=== PATIENT | female | born 1945 | race Caucasian/White ===

== ENCOUNTER 2017-10-14 11:09 | Emergency (ER) | payer MEDICARE, SELFPAY ==
[2017-10-14 11:10] VITALS: BP 187/98; PULSE 79; RESP 22; TEMP 36.7; O2SAT 96; BMI 44.8
[2017-10-14 11:32] VITALS: PULSE 79; RESP 18; O2SAT 95
--- NOTE | 2017-10-14 11:55 | ED.DCSUM_ITS ---
- ER Visit Summary Date of Service: 10/14/17 Chief Complaint: Left leg laceration History of Present Illness: The patient is a 71 M who is in a wheelchair and she caught her left leg on the door of a car. states her tetanus was performed 5 years ago. She has severe lymphedema. Physical Examination: Afebrile vital signs are stable There is a 3 cm fairly well approximated laceration of the anterior aspect of the mid left leg. There is 4+ lymphedema. There is mild oozing at the laceration site. Laceration is full-thickness. Emergency Department Course and Treatment: Has the skin is then and the wound is weeping already with lymphedematous fluid. I used Dermabond to close the wound after washing with Shur-Clens. Patient was placed on Keflex. She will follow-up with her doctor in 1 week return if worsening. Impression: 1. 3 cm left leg laceration with repair This note was generated with [employer] dictation software. It may contain incorrect words, spelling, and punctuation that were not noted in review of the chart prior to signing ED Disposition - Plan for ED Patient: Disposition: Home or Assisted Living Chief Complaint: Laceration Instructions: ED Laceration Ext Skin Glue Prescriptions: Clindamycin HCl [Cleocin] 300 mg PO Q6H #28 cap Referrals: Jose Cardenas [Primary Care Provider] - 1 Week if not improving
[2017-10-14 12:09] VITALS: PULSE 75; RESP 18; O2SAT 95
== END 2017-10-14 12:20 | disposition home or self-care (01) ==
PROVIDERS: Emergency Provider Emergency Medicine; Family Provider Family Medicine; PCP Family Medicine
DX: S81.812A Laceration without foreign body, left lower leg, initial encounter (principal); W45.8XXA Other foreign body or object entering through skin, initial encounter; Y93.9 Activity, unspecified; Y92.9 Unspecified place or not applicable; I89.0 Lymphedema, not elsewhere classified; G20 Parkinson's disease; E66.9 Obesity, unspecified; Z68.41 Body mass index [BMI] 40.0-44.9, adult; Z79.82 Long term (current) use of aspirin; Z79.899 Other long term (current) drug therapy
CPT/HCPCS: 12002; 99282